=== PATIENT | female | born 1955 | race African-American/Black ===

== ENCOUNTER 2017-09-30 04:28 | Emergency (ER) | payer BC ==
[2017-09-30 04:36] VITALS: BP 164/96; PULSE 61; TEMP 98.3; BMI 52.4
[2017-09-30] MEDS ORDERED: predniSONE 20 MG TABLET (UD) PO ONE (04:59)
[2017-09-30] MEDS: ALBUTEROL SO4 2.5/IPRATROPIUM 0.5 INH SOL 3 ML VIAL.NEB. NEB SCH ×3 (05:00→05:45)
--- NOTE | 2017-09-30 05:04 | PDOC ---
History of Present Illness - General Chief Complaint: Shortness of Breath Stated Complaint: Sob Time Seen by Provider: 09/30/17 04:49 History Source: Patient Exam Limitations: No Limitations - History of Present Illness Initial Comments: 09/30/17 05:00 This is a morbidly obese 62-year-old female comes in complaining of acute exacerbation of her asthma. Patient has been a long time since she had any prednisone or had to visit the ED for her asthma. Patient denies any fevers or chills. Patient denies any nausea vomiting or diarrhea. Patient moves her inhaler home still having difficulty breathing. Patient is also complaining of some bilateral pedal edema for which she said she's been on her feet a lot more than usual and has been doing some cooking and eating worse so because she is been tasting the cooking. Patient has no point with her primary care doctor for evaluation in a few hours. PAST MEDICAL HISTORY: As per history of present illness PAST SURGICAL HISTORY: no significant history FAMILY HISTORY: no pertinant history SOCIAL HISTORY: Pt lives with family and is employed. MEDICATIONS: reviewed ALLERGIES: As per nursing notes Review of Systems General: No fevers or chills, no weakness, no weight loss HEENT: No change in vision. No sore throat,. No ear pain CardioVascular: No chest pain or shortness of breath Respiratory:+ cough, + wheezing. Gastrointestinal: no nausea, vomitting, diarrhea or constipation, No rectal bleeding Genitourinary: No dysuria, hematuria, or frequency Musculoskeletal: No joint or muscle pain or swelling Neurologic: No headache, vertigo, dizziness or loss of consciousness Psychiatric: nor depression Skin: No rashes or easy bruising Endocrine: no increased thirst or abnormal weight change Allergic: no skin or latex allergy All other systems reviewed and normal Exam: General: Well-nourished well-developed individual, no acute distress HEENT: Throat: Normal, tonsils normal, no erythema or exudate Neck: Supple, no meningeal signs, no lymphadenopathy Eyes::Pupils equal reactive and round, extraocular motion intact Chest: Nontender to palpation Cardiac: S1-S2 normal, regular rate and rhythm, no murmurs rubs or gallops Respiratory: There is some mild expiratory wheezing bilateral. Abdomen: Soft, nondistended, normal bowel sounds, nontender to palpation diffusely Extremities: Warm, dry, no cyanosis, clubbing, or edema Skin: No rashes Neuro: Alert and oriented x3, CN II - XII intact, nonfocal exam with normal strength, normal sensation, normal reflexes, normal gait, Psych: Normal mood and affect 09/30/17 06:30 Reevaluation patient's lungs are now clear post dual nebs and prednisone. Patient feels much better will discharge home. 09/30/17 06:27 Past History - Past Medical History Allergies/Adverse Reactions: Allergies Allergy/AdvReac Type Severity Reaction Status Date / Time Cola Syrup Allergy Verified 03/21/16 21:01 No Known Drug Allergies Allergy Verified 03/21/16 21:01 NUTS Allergy Swelling Uncoded 03/21/16 21:01 Home Medications: Ambulatory Orders Albuterol Sulfate Inhaler - [Ventolin HFA Inhaler -] 1 - 2 inh PO QID PRN Docusate Sodium [Colace] 100 mg PO TID #90 capsule 08/23/14 Ferrous Sulfate [Feosol] 325 mg PO BID #60 tablet 08/23/14 Fluticasone/Salmeterol [Advair Hfa 230-21 Mcg Inhaler] 1 inh PO BID 08/23/14 Gabapentin [Neurontin] 300 mg PO DAILY 03/21/16 Meclizine HCl 25 mg PO TID PRN #21 tablet 03/21/16 Medroxyprogesterone Acetate 10 mg PO DAILY 03/21/16 Oxycodone HCl 30 mg PO DAILY 03/21/16 Prednisone [Deltasone] 60 mg PO DAILY #12 tablet 09/30/17 Anemia: Yes Asthma: Yes Cancer: No Cardiac Disorders: No CVA: No COPD: No CHF: No Dementia: No Diabetes: No GI Disorders: No Disorders: No HTN: No Hypercholesterolemia: No Liver Disease: No Seizures: No Thyroid Disease: No - Surgical History Abdominal Surgery: No Appendectomy: No Cardiac Surgery: No Cholecystectomy: No Lung Surgery: No Neurologic Surgery: No Orthopedic Surgery: Yes (SPINAL FUSION L4-L5 2004,2006) - Reproductive History Dysfunctional Uterine Bleeding: Yes - Immunization History Immunization Up to Date: Yes - Suicide/Smoking/Psychosocial Hx Smoking Status: No Smoking History: Never smoked Have you smoked in the past 12 months: No Number of Cigarettes Smoked Daily: 0 Information on smoking cessation initiated: No Hx Alcohol Use: No Drug/Substance Use Hx: No Substance Use Type: None Hx Substance Use Treatment: No *Physical Exam - Vital Signs Last Vital Signs Temp Pulse Resp BP Pulse Ox 98.3 F 61 17 164/96 97 09/30/17 04:29 09/30/17 04:37 09/30/17 04:29 09/30/17 04:29 09/30/17 04:37 *DC/Admit/Observation/Transfer Diagnosis at time of Disposition: Asthma exacerbation Qualifiers: Asthma severity: mild Asthma persistence: intermittent Qualified Code(s): J45.21 - Mild intermittent asthma with (acute) exacerbation - Discharge Dispostion Disposition: HOME Condition at time of disposition: Good - Referrals Referrals: Jeff Bennett MD [Primary Care Provider] - - Patient Instructions Additional Instructions: Use your inhaler 2 puffs as often as every 4 hours if needed. Take prednisone 40 mg a day for the next 4 days. Return to the emergency department immediately with ANY new, persistent or worsening symptoms. Continue any medications as previously prescribed by your physician. You should follow up with your primary doctor as soon as possible regarding today's emergency department visit. . Please make sure your doctor reviews the results of your emergency evaluation. Thank you for coming to the Emergency Department today for your care. It was a pleasure to see you today. Please note that your evaluation is INCOMPLETE until you follow-up with your doctor. - Post Discharge Activity
== END 2017-09-30 06:37 | disposition home or self-care (01) ==
LOC: FER 04:28
PROC: 3E0F7GC Introduction of Other Therapeutic Substance into Respiratory Tract, Via Natural or Artificial Opening (ICD-10-PCS; principal; 2017-09-30)
DX: J45.21 Mild intermittent asthma with (acute) exacerbation (principal); E66.01 Morbid (severe) obesity due to excess calories; Z68.26 Body mass index [BMI] 26.0-26.9, adult
CPT/HCPCS: 99282-25; J7620

== ENCOUNTER 2017-10-31 20:01 | Emergency (ER) | payer BC ==
[2017-10-31 20:07] VITALS: BP 150/85; PULSE 79; TEMP 97.4; BMI 51.7
[2017-10-31] MEDS ORDERED: IBUPROFEN 600 MG TABLET (FP) PO ONE ×2 (20:36→20:57)
--- NOTE | 2017-10-31 20:48 | PDOC ---
History of Present Illness - General History Source: Patient Exam Limitations: No Limitations - History of Present Illness Initial Comments: 10/31/17 21:35 The patient is a right hand dominant 62 year old female with a significant past medical history of chronic back pain, anemia and asthma who presents to the emergency department for evaluation of right arm pain. The patient reports a 1 week history of worsening right arm pain. She describes the right arm pain as localized to the bicep, radiating down to her wrist, symptoms worse with repetitive movements. 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 The patient denies recent strenuous activity, falls, trauma, and history of blood clots. Denies shoulder pain, chest pain, shortness of breath, headache, and dizziness. Denies fever, chills, nausea, vomiting, and any urinary/bowel symptoms. No history of weakness or paresthesias. Allergies: NKDA, Cola syrup, Nuts. Social History: Recreational Choir Conductor. No reported alcohol, cigarette, or drug use. Surgical History: L4-L5 spinal fusion. Knee. <Adrian Mahoney - Last Filed: 10/31/17 21:33> - General History Source: Patient Exam Limitations: No Limitations <Isabel Ho - Last Filed: 10/31/17 21:38> - General Chief Complaint: Pain, Acute Stated Complaint: RIGHT ARM PAIN X ONE WEEK Time Seen by Provider: 10/31/17 20:35 Past History <Adrian Mahoney - Last Filed: 10/31/17 21:33> - Past Medical History Anemia: Yes Asthma: Yes Cancer: No Cardiac Disorders: No CVA: No COPD: No CHF: No Dementia: No Diabetes: No GI Disorders: No Disorders: No HTN: No Hypercholesterolemia: No Liver Disease: No Seizures: No Thyroid Disease: No - Surgical History Abdominal Surgery: No Appendectomy: No Cardiac Surgery: No Cholecystectomy: No Lung Surgery: No Neurologic Surgery: No Orthopedic Surgery: Yes (SPINAL FUSION L4-L5 2004,2006) - Reproductive History Dysfunctional Uterine Bleeding: Yes - Immunization History Immunization Up to Date: Yes - Suicide/Smoking/Psychosocial Hx Smoking Status: No Smoking History: Never smoked Have you smoked in the past 12 months: No Number of Cigarettes Smoked Daily: 0 Information on smoking cessation initiated: No Hx Alcohol Use: No Drug/Substance Use Hx: No Substance Use Type: None Hx Substance Use Treatment: No <Isabel Ho - Last Filed: 10/31/17 21:38> - Past Medical History Allergies/Adverse Reactions: Allergies Allergy/AdvReac Type Severity Reaction Status Date / Time Cola Syrup Allergy Verified 10/31/17 20:02 No Known Drug Allergies Allergy Verified 10/31/17 20:02 NUTS Allergy Swelling Uncoded 03/21/16 21:01 Home Medications: Ambulatory Orders Albuterol Sulfate Inhaler - [Ventolin HFA Inhaler -] 1 - 2 inh PO QID PRN Docusate Sodium [Colace] 100 mg PO TID #90 capsule 08/23/14 Ferrous Sulfate [Feosol] 325 mg PO BID #60 tablet 08/23/14 Fluticasone/Salmeterol [Advair Hfa 230-21 Mcg Inhaler] 1 inh PO BID 08/23/14 Gabapentin [Neurontin] 300 mg PO DAILY 03/21/16 Meclizine HCl 25 mg PO TID PRN #21 tablet 03/21/16 Medroxyprogesterone Acetate 10 mg PO DAILY 03/21/16 Oxycodone HCl 30 mg PO DAILY 03/21/16 Prednisone [Deltasone] 60 mg PO DAILY #12 tablet 09/30/17 Review of Systems - Review of Systems Able to Perform ROS?: Yes Comments:: GENERAL/CONSTITUTIONAL: No fever or chills. No weakness. no sweats. CVS: no edema MUSCULOSKELETAL: (+)Right arm pain. No joint or muscle swelling or pain. No neck or back pain. SKIN: No rash or changes in skin color or lesions. NEUROLOGIC: No change in strength/sensation. No gait instability. HEMATOLOGIC/LYMPHATIC: +anemia, no easy bruising/bleeding, or history of blood clots. ALLERGIC/IMMUNOLOGIC: No hives or skin allergy. All other systems reviewed and negative, or as documented in HPI. <Adrian Mahoney - Last Filed: 10/31/17 21:33> *Physical Exam - Vital Signs Last Vital Signs Temp Pulse Resp BP Pulse Ox 97.4 F L 79 18 150/85 98 10/31/17 20:03 10/31/17 20:03 10/31/17 20:03 10/31/17 20:03 10/31/17 20:03 - Physical Exam Comments: General: NAD, well appearing MSK/Neuro: Soft compartments. +Right bicep tenderness, no deformity or injury noted. Right shoulder abduction/adduction/flexion/extension and prox strength 5/ 5 actively against resistance. 5/5 shoulder shrug strength. deltoid sensation intact; decreased sensation to light touch over medial aspect of right arm along bicep. sensation grossly intact distally in median/radial/ulnar distribution. 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 2+ radialis pulses bilaterally and symmetric. no tenderness along deep venous system. Skin: no color changes, warm and well perfused. Peripheral: 2+ radialis pulses. <Adrian Mahoney - Last Filed: 10/31/17 21:33> - Vital Signs Last Vital Signs Temp Pulse Resp BP Pulse Ox 97.4 F L 79 18 150/85 98 10/31/17 20:03 10/31/17 20:03 10/31/17 20:03 10/31/17 20:03 10/31/17 20:03 <Isabel Ho - Last Filed: 10/31/17 21:38> ED Treatment Course - Medications Given in the ED: ED Medications Discontinued Medications Generic Name Dose Route Start Last Admin Trade Name Freq PRN Reason Stop Dose Admin Ibuprofen 600 mg 10/31/17 20:36 10/31/17 21:06 Motrin - PO 10/31/17 20:37 600 mg ONCE ONE Administration <Adrian Mahoney - Last Filed: 10/31/17 21:33> Medical Decision Making - Medical Decision Making 10/31/17 21:33 MDM: Amanda 62 YOF with PMHx anemia (iron deficiency, noncompliant with iron), asthma, postmenopausal, chronic back pain with lumbar spine fusion, presenting with right arm pain x 1 week. no trauma or falls. +Right hand dom, conducts for choir. Vital signs reviewed, wnl. given motrin for pain, as pt has not taken anything. likely repetitive strain and adiposity affecting musculocutaneous nerve and biceps strain. rest and phys activity as tolerated, min triggers; ROM exercises advised. clinically doubt DVT or vascular pathology as no tenderness or skin changes along deep venous system. NVI, reassuring exam. no signs of infection. discharge with PCP followup and care. 10/31/17 21:36 <Isabel Ho - Last Filed: 10/31/17 21:38> *DC/Admit/Observation/Transfer - Attestations Scribe Attestion: Documentation prepared by Adrian Mahoney, acting as medical insurance verifier for Isabel Ho MD. <Adrian Mahoney - Last Filed: 10/31/17 21:33> - Discharge Dispostion Decision to Admit order: No <Isabel Ho - Last Filed: 10/31/17 21:38> Diagnosis at time of Disposition: Right arm pain - Discharge Dispostion Disposition: HOME Condition at time of disposition: Stable - Patient Instructions Printed Discharge Instructions: DI for Arm Pain Additional Instructions: take your ibuprofen or NSAID every 6 hours as needed for pain. rest, elevate your arm. minimize repetitious activities. should also exercise your arm for strengthening with elbow/shoulder extension and flexion movements follow up with your primary doctor.
== END 2017-10-31 21:29 | disposition home or self-care (01) ==
LOC: FER 20:01
DX: M79.601 Pain in right arm (principal); G89.29 Other chronic pain; J45.909 Unspecified asthma, uncomplicated
CPT/HCPCS: 99281-25

== ENCOUNTER 2018-04-21 10:05 | Emergency (ER) | payer BC ==
--- NOTE | 2018-04-21 10:17 | PDOC ---
History of Present Illness - General Chief Complaint: Respiratory Stated Complaint: COUGH & ASTHMA Time Seen by Provider: 04/21/18 10:16 - History of Present Illness Initial Comments: 04/21/18 11:10 The patient is a 63 year old female with a history of Anemia, and Asthma who presents for evaluation of an asthma exacerbation. The patient reports a 1 day history of worsening shortness of breath with associated wheezing and intermittently productive cough with subjective fevers. She reports continued symptoms despite her home inhaler use prompting her presentation to the ED for further evaluation. She notes that she has had multiple sick contacts diagnosed with pneumonia as well. She otherwise denies fevers, chills, chest pain, nausea, vomiting, abdominal pain, or changes with urination or bowel movements. Past History - Past Medical History Allergies/Adverse Reactions: Allergies Allergy/AdvReac Type Severity Reaction Status Date / Time Cola Syrup Allergy Verified 04/21/18 10:15 AMBAR NUTS Allergy Intermediate Swelling Uncoded 04/21/18 10:15 NUTS Allergy Swelling Uncoded 03/21/16 21:01 Home Medications: Ambulatory Orders Albuterol Sulfate Inhaler - [Ventolin HFA Inhaler -] 1 - 2 inh PO QID PRN Fluticasone/Salmeterol [Advair Hfa 230-21 Mcg Inhaler] 1 inh PO BID 08/23/14 Gabapentin [Neurontin] 600 mg PO BID 03/21/16 Oxycodone HCl 30 mg PO DAILY 03/21/16 Azithromycin [Zithromax 250mg Tablets -] 250 mg PO UTDICT #6 tab 04/21/18 predniSONE [Deltasone -] 40 mg PO DAILY #8 tablet 04/21/18 Anemia: Yes Asthma: Yes Cancer: No Cardiac Disorders: No CVA: No COPD: No CHF: No Dementia: No Diabetes: No GI Disorders: No Disorders: No HTN: No Hypercholesterolemia: No Liver Disease: No Seizures: No Thyroid Disease: No - Surgical History Abdominal Surgery: No Appendectomy: No Cardiac Surgery: No Cholecystectomy: No Lung Surgery: No Neurologic Surgery: No Orthopedic Surgery: Yes (SPINAL FUSION L4-L5 2004,2006) - Reproductive History Dysfunctional Uterine Bleeding: Yes - Immunization History Immunization Up to Date: Yes - Suicide/Smoking/Psychosocial Hx Smoking Status: No Smoking History: Never smoked Have you smoked in the past 12 months: No Number of Cigarettes Smoked Daily: 0 Hx Alcohol Use: No Drug/Substance Use Hx: No Substance Use Type: None Hx Substance Use Treatment: No Review of Systems - Review of Systems Comments:: 04/21/18 11:13 Constitutional: No fevers, chills, fatigue, malaise HEENT: No Rhinorrhea, nasal congestion, visual changes Cardiovascular: No chest pain, syncope, palpitations, lightheadedness Respiratory: SOB, Cough. No Hemoptysis, Gastrointestinal: No Abdominal pain, Nausea, Vomiting, Constipation, Diarrhea, Melena Genitourinary: No Dysuria, Frequency, Urgency, Hesitancy, Hematuria, Flank pain Musculoskeletal: No Myalgia, arthralgia Skin: No rashes, itching, bruising, pallor Neurologic: No Headache, Dizziness, Numbness, Weakness, or Tingling Psychiatric: No Hallucinations. No SI or HI *Physical Exam - Physical Exam Comments: 04/21/18 11:14 General Appearance: Nourished. No Apparent Distress HEENT: No Pharyngeal Erythema, Tonsillar Exudate, Tonsillar Erythema Neck: No Cervical Lymphadenopathy Respiratory/Chest: Normal Breath Sounds. Diffuse expiratory wheezing noted on exam. No Crackles, Rales, Rhonchi, Cardiovascular: Regular Rhythm, Regular Rate. No Murmur, Gallops, Rubs Gastrointestinal/Abdominal: Normal Bowel Sounds, Soft. No Guarding, Rebound, Tenderness Musculoskeletal: No CVA Tenderness Extremity: Normal Capillary Refill Integumentary: Normal Color, Dry, Warm Neurologic: Fully Oriented, Alert, Normal Mood/Affect, Normal Response, Medical Decision Making - Medical Decision Making 04/21/18 11:15 The patient is a 63 year old female with a history of Anemia, and Asthma who presents for evaluation of an asthma exacerbation. Given the patient's history and physical exam, we will obtain a chest plain film and treat with duonebs and prednisone. The patient's symptoms are likely due to a mild asthma exacerbation. Chest plain film is unremarkable as preliminarily read by ED physician. We are comfortable discharging the patient home with azithromycin and prednisone and primary care provider follow up. We discussed the results, plan, and return precautions with the patient who voiced understanding and is agreeable with the plan. *DC/Admit/Observation/Transfer Diagnosis at time of Disposition: Asthma exacerbation Qualifiers: Asthma severity: mild Asthma persistence: unspecified Qualified Code(s): J45.901 - Unspecified asthma with (acute) exacerbation - Discharge Dispostion Disposition: HOME Condition at time of disposition: Good - Prescriptions Prescriptions: Azithromycin [Zithromax 250mg Tablets -] 250 mg PO UTDICT #6 tab predniSONE [Deltasone -] 40 mg PO DAILY #8 tablet - Referrals Referrals: Jeff Bennett MD [Primary Care Provider] - - Patient Instructions Printed Discharge Instructions: DI for Asthma -- Adult Additional Instructions: Please return to the ER if you experience concerning or worsening symptoms including worsening difficulty breathing, weakness, or chest pain, fevers. Your XRAY results were normal here in the ER. We have sent a prescription for antibiotics and steroids to your pharmayc that you should take as directed. Please call to schedule a follow up appointment with your primary care provider within 2-3 days to discuss your ER visit and further management of your symptoms. - Post Discharge Activity
[2018-04-21 10:21] VITALS: BP 152/94; PULSE 83; TEMP 99.8; BMI 53.1
[2018-04-21] MEDS ORDERED: predniSONE 20 MG TABLET (UD) PO ONE (10:24)
[2018-04-21] MEDS ORDERED: ALBUTEROL SO4 2.5/IPRATROPIUM 0.5 INH SOL 3 ML VIAL.NEB. NEB ONE ×3 (10:24→10:33)
[2018-04-21] MEDS ORDERED: predniSONE 20 MG TABLET (UD) ONE (10:32)
--- NOTE | 2018-04-21 10:45 | PDOC ---
Attending Attestation - Resident Resident Name: NadineJethro - ED Attending Attestation I have performed the following: I have examined & evaluated the patient, The case was reviewed & discussed with the resident, I agree w/resident's findings & plan, Exceptions are as noted - HPI HPI: 04/21/18 10:49 63 year old female patient with pmh of anemia and asthma presents with asthma exacerbation. Yesterday, took family member to another ER for PNA workup. Pt was there in the ED exposed to all other patients. Pt started to complain of tactile fevers, nonproductive cough and wheezing. no chest pain. Has been taking albuterol with some mild relief. - Physicial Exam PE: 04/21/18 10:55 GENERAL: Awake, alert, and fully oriented, in no acute distress HEAD: No signs of trauma EYES: EOMI, sclera anicteric, conjunctiva clear ENT: Auricles normal inspection, hearing grossly normal, nares patent NECK: Normal ROM, supple, LUNGS: Diffuse expiratory wheezing bilaterally. EXTREMITIES: Normal range of motion, no edema. No clubbing or cyanosis. No cords, erythema, or tenderness NEUROLOGICAL: Cranial nerves II through XII grossly intact. Normal speech SKIN: Warm, Dry, normal turgor, no rashes or lesions noted. - Medical Decision Making 04/21/18 10:56 Vital Signs Temp Pulse Resp BP Pulse Ox 99.8 F H 83 18 152/94 97 04/21/18 10:13 04/21/18 10:13 04/21/18 10:13 04/21/18 10:13 04/21/18 10:13 Impression: Asthma exacerbation with likely bronchitis. R/o PNA. Chest xray. Duonebs, prednisone, and empiric azithromycin. If chest xray unremarkable and pt feels better, pt can be d/c home. Appears comfortable and nontoxic.
[2018-04-21] MEDS ORDERED: AZITHROMYCIN 500 MG TABLET PO ONE (11:43)
[2018-04-21] MEDS ORDERED: AZITHROMYCIN 500 MG TABLET ONE (11:45)
== END 2018-04-21 11:49 | disposition home or self-care (01) ==
LOC: FER 10:05
PROC: 3E0F7GC Introduction of Other Therapeutic Substance into Respiratory Tract, Via Natural or Artificial Opening (ICD-10-PCS; principal; 2018-04-21)
DX: J45.901 Unspecified asthma with (acute) exacerbation (principal); D64.9 Anemia, unspecified
CPT/HCPCS: 71046-TC-FY; 99282-25

== ENCOUNTER 2023-04-02 09:10 | Emergency (ER) | payer BC ==
[2023-04-02 09:34] VITALS: BP 150/80; PULSE 68; RESP 20; TEMP 98; BMI 52.0
[2023-04-02] MEDS ORDERED: SODIUM CHLORIDE 0.9% 500 ML INFUS.BAG IV ONE (09:49)
[2023-04-02] MEDS ORDERED: ACETAMINOPHEN 1000 MG/100 ML BAG IVPB ONE (10:11)
[2023-04-02] MEDS ORDERED: ACETAMINOPHEN INJECTION 100 ML IVPB ONE (10:12)
[2023-04-02 11:23] LABS: HEMATOCRIT 42.2 % (32.4-45.2); HEMOGLOBIN 13.4 G/dL (10.7-15.3); MCH 26.6 pg (25.7-33.7); MCHC 31.8 g/dl (32.0-36.0); MEAN CELL VOLUME 83.8 fl (80-96); MEAN PLT VOLUME 9.6 fl (7.5-11.1); PLATELET COUNT 189.2 10^3/uL (134-434); RBC 5.04 10^6/uL (3.60-5.2); RDW 16.8 % (11.6-15.6); WHITE BLOOD COUNT 5.5 10^3/uL (4.0-10.8)
[2023-04-02 11:27] LABS: ALBUMIN 4.1 g/dl (3.4-5.0); BILIRUBIN,TOTAL 0.4 mg/dl (0.2-1); CALCIUM 9.3 mg/dl (8.5-10.1); CREATININE 0.8 mg/dl (0.6-1.3); MAGNESIUM 1.9 mg/dL (1.8-2.4); PHOSPHOROUS 2.9 (2.5-4.9); POTASSIUM 4.1 mmol/L (3.5-5.1); TOT PROT 6.2 g/dl (6.4-8.2)
[2023-04-02 11:29] LABS: PLATELET ESTIMATE ADEQUATE
== END 2023-04-02 13:04 | disposition home or self-care (01) ==
LOC: FER 09:10
PROC: 3E033NZ Introduction of Analgesics, Hypnotics, Sedatives into Peripheral Vein, Percutaneous Approach (ICD-10-PCS; principal; 2023-04-02)
DX: M79.672 Pain in left foot (principal); R42 Dizziness and giddiness; R63.1 Polydipsia; R25.2 Cramp and spasm; M79.10 Myalgia, unspecified site; Z20.822 Contact with and (suspected) exposure to COVID-19
CPT/HCPCS: 0241U-QW; 36415; 71046-TC-FY; 73630-TC-LT; 80053; 83735; 84100; 84484; 85025; 93005; 96374; 99285-25